=== PATIENT | male | born 1975 | race Caucasian/White ===

== ENCOUNTER 2017-06-27 08:10 | Emergency (ER) | payer OTHER ==
[2017-06-27] MEDS: KETOROLAC 60 MG/2 ML VIAL (J1885) IM (08:50)
== END 2017-06-27 09:34 | disposition home or self-care (01) ==
LOC: M ED 08:10
DX: M25.562 Pain in left knee (principal); M25.462 Effusion, left knee; M25.762 Osteophyte, left knee; I10 Essential (primary) hypertension; F17.210 Nicotine dependence, cigarettes, uncomplicated; Z79.899 Other long term (current) drug therapy; Z98.890 Other specified postprocedural states
CPT/HCPCS: J1885